=== PATIENT | female | born 1950 | race Caucasian/White ===

== ENCOUNTER 2017-07-17 18:10 | Emergency (ER) | payer OTHER ==
[~2017-07-17] VITALS: Ht 162.6 cm; Wt 72.0 kg
[~2017-07-17 18:10] MED LIST: AZIT250T94 PO; D-ME473S2 PO; IBUP400T22 PO
[2017-07-17 18:24] VITALS: Ht 162.6 cm; Wt 72.0 kg
[2017-07-17] MEDS ORDERED: SOD CHLORIDE 0.9% 500 ML IV STA (20:47)
[2017-07-17] MEDS ORDERED: morphine 2 MG INJ IV STA (20:47)
[2017-07-17] MEDS ORDERED: ONDANSETRON 4 MG INJ IV STA (20:47)
[2017-07-17 21:18] LABS: BASOPHILS % 0.5 % (0.0-2.0); EOSINOPHILS # 0.2 10^3/ul (0.0-0.5); EOSINOPHILS % 3.2 % (0.0-7.0); HEMATOCRIT 42.5 % (37.0-47.0); HEMOGLOBIN 14.1 g/dl (12.0-16.0); LYMPHOCYTES # 2.3 10^3/ul (0.8-2.9); LYMPHOCYTES % 41.2 % (15.0-51.0); MEAN CORPUSCULAR HEMOGLOBIN 29.9 pg (29.0-33.0); MEAN CORPUSCULAR HGB CONC 33.2 g/dl (32.0-37.0); MEAN CORPUSCULAR VOLUME 90.2 fl (82.0-101.0); MEAN PLATELET VOLUME 9.7 fl (7.4-10.4); MONOCYTE # 0.4 10^3/ul (0.3-0.9); MONOCYTES % 7.1 % (0.0-11.0); NEUTROPHIL # 2.7 10^3/ul (1.6-7.5); NEUTROPHILS % 47.8 % (39.0-77.0); PLATELET COUNT 189 10^3/UL (140-415); RED BLOOD COUNT 4.71 10^6/ul (4.20-5.40); RED CELL DISTRIBUTION WIDTH 12.7 % (11.5-14.5); WHITE BLOOD COUNT 5.7 10^3/ul (4.8-10.8)
[2017-07-17 21:37] LABS: ALBUMIN/GLOBULIN RATIO 1.11; BILIRUBIN,INDIRECT 0.5 mg/dl (0-1.1); BILIRUBIN,TOTAL 0.5 mg/dl (0.2-1.3); CALCIUM 9.8 mg/dl (8.4-10.2); CREATININE 0.76 mg/dl (0.44-1.00); POTASSIUM 4.2 mmol/L (3.5-5.1); TOTAL PROTEIN 7.6 g/dl (6.1-8.1)
--- NOTE | 2017-07-17 22:04 | RADRPT ---
PROCEDURE: CT Abdomen and Pelvis without contrast. CLINICAL INDICATION: Pain. TECHNIQUE: CT scan of the abdomen and pelvis was performed on a multidetector slice CT scanner. No intravenous contrast material was utilized. Sagittal and coronal reformatted images were obtained fr om the axial source images. Images were reviewed on a high-resolution PACS workstation. Exam CTDlvol = 13 mGy and DLP = 654 Gy-cm. One of the following 3 dose reduction techniques were used: Automated exposure control; adjustment of the mA and/or kV according to patient size; or use of iterative rec onstruction technique. COMPARISON: None. FINDINGS: There is a ventral pelvic incision scar. There is no obstruction or ileus. The appendix is visualiz ed and normal in size. There is are scattered colonic diverticuli without evidence for diverticuliti s. There is no free fluid. The liver is overall normal in size. There is a punctate calcification in the right lobe of liver. N o other intrahepatic lesions are identified. The gallbladder is contracted with mild wall thickening .. There is no definite biliary ductal dilation. Pancreas is normal in appearance. The spleen is unr emarkable.. There are no adrenal masses. The aorta is normal caliber. Kidneys are normal in appearance without hydronephrosis, mass or calculus. There is no perinephric c ollection. Ureters are of normal caliber and without evidence for an obstructing calculus. The urin jenn bladder is normal in appearance.. Uterus is either absent or severely atrophic. Limited evaluation of the lung bases is unremarkable. There is an S-shaped scoliosis of the thoracic lumbar spine with diffuse degenerative changes. IMPRESSION: 1. No bowel obstruction or ileus. 2. Scattered colonic diverticuli without evidence for diverticulitis. 3. No evidence for appendicitis. 4. No obstructive uropathy. 5. Contracted gallbladder with nonspecific wall thickening. No evidence for biliary obstruction. 6. Punctate calcification right lobe liver, possibly granuloma. 7. Absent or severely atrophic uterus. 8. Scoliosis with diffuse degenerative change is of the spine. RPTAT: [facility]VK .Cruz Gutierrez MD, Date Time Electronically viewed and signed by .Cruz Gutierrez MD, on 07/17/2017 22:04 .[place]/
[2017-07-17 22:25] LABS: ADD UMIC NO; UR ASCORBIC ACID 40 mg/dL (NEGATIVE); UR BILIRUBIN (Dip) NEGATIVE (NEGATIVE); UR BLOOD (Dip) NEGATIVE (NEGATIVE); UR CLARITY CLEAR (CLEAR); UR COLOR YELLOW (YELLOW); UR GLUCOSE (Dip) NEGATIVE (NEGATIVE); UR KETONES (Dip) NEGATIVE (NEGATIVE); UR LEUKOCYTE ESTERASE (Dip) NEGATIVE Leu/ul (NEGATIVE); UR NITRITE (Dip) NEGATIVE (NEGATIVE); UR SPECIFIC GRAVITY (Dip) 1.018 (1.003-1.030); UR TOTAL PROTEIN (Dip) NEGATIVE (NEGATIVE); UR UROBILINOGEN (Dip) NEGATIVE (NEGATIVE)
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
[2017-07-17] MEDS ORDERED: TRAM50TA2 PO (22:32)
[2017-07-17 23:26] VITALS: BP 131/83; PULSE 80; RESP 20; TEMP 98
== END 2017-07-17 23:27 | disposition home or self-care (01) ==
LOC: E/R 18:10
DX: S30.1XXA Contusion of abdominal wall, initial encounter (principal); W18.49XA Other slipping, tripping and stumbling without falling, initial encounter; Y92.9 Unspecified place or not applicable; Z85.43 Personal history of malignant neoplasm of ovary
CPT/HCPCS: 36415; 74176; 80053; 81003; 83690; 85025; 96374; 96375; 99285; J2270; J2405; J7040

== ENCOUNTER → 2018-01-16 | Outpatient (CLI) | END | disposition home or self-care (01) ==